=== PATIENT | female | born 1985 | race Caucasian/White ===

== ENCOUNTER 2020-01-04 13:56 | Emergency (ER) | payer SELFPAY ==
--- NOTE | 2020-01-04 14:10 | XRR_ITS ---
PROCEDURE INFORMATION: Exam: XR Right Foot Complete Exam date and time: 01/04/2020 3:22 PM Age: 34 years old Clinical indication: Injury or trauma; Injury history: Not specified; Initial encounter; Blunt trauma; Foot; Right TECHNIQUE: Imaging protocol: XR Right foot. Views: 3 or more views. COMPARISON: No relevant prior studies available. FINDINGS: Bones/joints: No acute fracture. No dislocation. Soft tissues: Soft tissue swelling of the forefoot. No radiopaque foreign body identified. XR/XR foot RT min 3V* [id number] IMPRESSION: No acute fracture or dislocation.
[2020-01-04 14:40] VITALS: BP 145/98; PULSE 107; RESP 16; TEMP 36.6; O2SAT 98; BMI 33.9
--- NOTE | 2020-01-04 14:46 | PC.NURSE ---
Patient seated in the waiting room. Will continue to monitor.
[2020-01-04 16:29] VITALS: BP 114/55; PULSE 106; PULSE 108; RESP 18; TEMP 36.9; O2SAT 105
--- NOTE | 2020-01-04 16:47 | XRR_ITS ---
PROCEDURE INFORMATION: Exam: XR Right Ankle Exam date and time: 01/04/2020 4:48 PM Age: 34 years old Clinical indication: Pain; Ankle; Right; Additional info: Fall TECHNIQUE: Imaging protocol: XR Right ankle. Views: 3 or more views. COMPARISON: CR XR foot RT min 3V* [id number] 01/04/2020 3:15 PM FINDINGS: Bones/joints: Alignment is normal. The ankle mortise and talar dome are preserved. No displaced fracture is seen. No cortical avulsions are seen. The calcaneus is intact. Suspect a posterior ankle effusion. Soft tissues: Mild periarticular soft tissue swelling is noted. XR/XR ankle RT min 3V* [id number] IMPRESSION: 1. No acute fracture or dislocation. 2. Suspect posterior ankle effusion.
--- NOTE | 2020-01-04 16:48 | W.ED.EXTPRO ---
HPI - Extremity Problem General: Chief complaint: Extremity Injury, Lower Stated complaint: RIGHT FOOT PAIN Time Seen by Provider: 01/04/20 16:02 Source: patient Mode of arrival: ambulatory Limitations: no limitations History of Present Illness: HPI Narrative: 34-year-old female patient presents to the emergency department complaining of right foot and ankle pain. Patient states she was sitting on it fell asleep and when she stood up she lost her balance and twisted her ankle. Patient states that it is difficult to ambulate on. Patient presents with edema and ecchymosis to the right foot and ankle. Pulses movement and sensations intact. Patient denies any other injury or trauma. MD Complaint: extremity pain and extremity swelling Onset (ago): hour(s) (4) Pain Consistency: constant Location: right and lower extremity Quality: aching and sharp Radiation: none Relieving factors: immobilization Exacerbating factors: weight bearing and walking Associated symptoms: Reports no associated symptoms; Deny chest pain, fever(s) or rash Review of Systems Const: Denies: fever, chills, body aches, fatigue or malaise Eyes: Denies: change in vision Card: Denies: chest pain, palpitations, irregular heart rhythm, lightheadedness or syncope Resp: Denies: shortness of breath, productive cough, wheezing or stridor GI: Denies: abdominal pain, nausea or vomiting : Denies: flank pain, difficulty urinating or painful urination Musc: Reports: extremity pain (Right ankle and foot pain), joint swelling and limited range of motion Skin/Breast: Denies: rash Neuro: Denies: headache or numbness in extremities Psych: Denies: anxiety, suicidal ideation or homicidal ideation [facility] ED PFSH: Statuses (acute, chronic, etc) shown below reflect problem list status as previously entered and may not be historically accurate Surgical History History of hernia surgery (Acute) History of removal of cyst (Acute) History of tubal ligation (Acute) Hx of cholecystectomy (Acute) Social History Smoking and tobacco status: current every day smoker cigarettes Packs smoked per day: 1 Years cigarettes smoked: 18 Quit status (tobacco): has tried quititng Number of times tried to quit tobacco: 3 Second hand smoke exposure: No Smoking risk assessment/counseling performed?: Yes Tobacco counseling given: counseling >3 minutes Physical Exam Const: COMMON NORMALS: no apparent distress and no limitations GENERAL APPEARANCE: cooperative ORIENTATION/CONSCIOUSNESS: Yes awake, Yes oriented to person, Yes oriented to place and Yes oriented to time HENMT: COMMON NORMALS: normocephalic and head/scalp atraumatic HEAD & SCALP: normocephalic and atraumatic Eye: COMMON NORMALS: PERRL PUPIL: Yes PERRL Neck/C-Spine: COMMON NORMALS: full ROM, no lymphadenopathy, supple and no JVD Resp: COMMON NORMALS: normal respiratory effort and clear to auscultation bilaterally EFFORT & INSPECTION: Yes able to speak in complete sentences AUSCULTATION: clear to auscultation bilaterally Cardio: COMMON NORMALS: no JVD, regular rate and regular rhythm RATE: regular rate RHYTHM: regular rhythm : COMMON NORMALS: Yes no CVA tenderness BLADDER/KIDNEY EXAM: Yes no CVA tenderness Back/Pelvis: COMMON NORMALS: no CVA tenderness and thoracic and lumbar spine normal to inspection THORACIC SPINE/UPPER BACK: Yes normal to inspection and Yes thoracic ROM normal LUMBAR SPINE/LOWER BACK: Yes normal to inspection and Yes lumbar ROM normal Extremity: RIGHT LOWER EXTREMITY: Yes ankle joint (Ecchymosis and swelling noted lateral malleolus) Right ankle: Yes ROM (Limited due to pain) LEFT LOWER EXTREMITY: Yes foot & digits (Swelling and ecchymosis noted NVI) Neuro: SENSORIUM/ORIENTATION: Yes oriented to person, Yes oriented to place and Yes oriented to time Psych: THOUGHT CONTENT: Yes normal thought content, No suicidality and No homicidality Course ED course: I will order ankle x-ray and foot x-ray have patient elevate extremity and place ice to area of pain. Pt i NVI dstal to area of pain. Pt xrays do not reveal any acute fractures or dislocation. Pts physical exam findings are c/w ankle sprain. I will place in ar cast and give crutches and place as non weight bearing with instructions to follow up with Dr. Sanchez. Vital Signs: Vital signs: Vital Signs Temperature 98.5 F 01/04/20 16:29 Pulse Rate 108 H 01/04/20 16:29 Respiratory Rate 18 01/04/20 16:29 Blood Pressure 114/55 01/04/20 16:29 Pulse Oximetry 105 H 01/04/20 16:29 Discharge Plan Discharge Clinical Impression: Ankle sprain and strain Condition: Stable Prescriptions: New hydrocodone-acetaminophen 5-300 mg tablet 1 tab PO Q6H Qty: 10 RF: 0 No Action mirtazapine [Remeron] 15 mg tablet 30 mg PO .HS Qty: 60 RF: 2 Referrals: Rina Sanchez MD [Physician] - Oniel Freeman Jr, MD [Primary Care Provider] - Patient Instructions: Ankle Sprain (ED) Activity Restrictions/Additional Instructions: Non weight bearing Please follow up with Dr. Sanchez Take meds as directed Please do not drive or operate heavy machinery while taking Hydrocodone Coding Level of Care Code ED Block [employer]er for [employer] Exam Problem Focused
--- NOTE | 2020-01-04 18:58 | W.ED.EXTPRO ---
HPI - Extremity Problem General: Chief complaint: Extremity Injury, Lower Stated complaint: RIGHT FOOT PAIN Time Seen by Provider: 01/04/20 16:02 Source: patient Mode of arrival: ambulatory Limitations: no limitations History of Present Illness: Pain Consistency: constant Location: right and lower extremity Quality: aching and sharp Relieving factors: immobilization Exacerbating factors: weight bearing and walking Associated symptoms: Deny chest pain, fever(s) or rash Review of Systems Const: Denies: fever, chills, body aches, fatigue or malaise Card: Denies: chest pain or palpitations Resp: Denies: shortness of breath, wheezing or stridor GI: Denies: abdominal pain, nausea or vomiting : Denies: flank pain, difficulty urinating or painful urination Musc: Reports: joint pain (right ankle and foot pain) Skin/Breast: Denies: rash Neuro: Denies: headache, numbness in extremities or weakness in extremities Psych: Denies: anxiety, depression, suicidal ideation or homicidal ideation PFSH ED PFSH: Statuses (acute, chronic, etc) shown below reflect problem list status as previously entered and may not be historically accurate Surgical History History of hernia surgery (Acute) History of removal of cyst (Acute) History of tubal ligation (Acute) Hx of cholecystectomy (Acute) Social History Smoking and tobacco status: current every day smoker cigarettes Packs smoked per day: 1 Years cigarettes smoked: 18 Quit status (tobacco): has tried quititng Number of times tried to quit tobacco: 3 Second hand smoke exposure: No Smoking risk assessment/counseling performed?: Yes Tobacco counseling given: counseling >3 minutes Physical Exam Const: COMMON NORMALS: no apparent distress Resp: COMMON NORMALS: normal respiratory effort, no retractions, no use of accessory muscles and clear to auscultation bilaterally AUSCULTATION: clear to auscultation bilaterally Cardio: COMMON NORMALS: regular rate and regular rhythm RATE: regular rate RHYTHM: regular rhythm : COMMON NORMALS: Yes no CVA tenderness BLADDER/KIDNEY EXAM: Yes no CVA tenderness Back/Pelvis: COMMON NORMALS: no CVA tenderness, thoracic and lumbar spine normal to inspection, no thoracic nor lumbar tenderness and thoraco-lumbar ROM normal Extremity: COMMON NORMALS: normal capillary refill and no calf tenderness RIGHT LOWER EXTREMITY: Yes ankle joint (right ankle pain swelling and bruising noted) and Yes foot & digits (right ankle pain swelling and bruising noted pt is NVI) Right foot and digits: Yes neurovascular exam Course ED course: Pt is wella ppearing non toxic and in no acute distress. I do not see any acute fractures or dislocations on xray however given the xtent of pain and swelling. I will place patient in air cast, crutches and have her non weight bearing and follow up with Dr. Sanchez ortho. Pt sent home with short course of pain meds. Risks advised. Return precautions discussed and home care reviewed. Pt is NVI distal to injury. Vital Signs: Vital signs: Vital Signs Temperature 99.2 F 01/04/20 19:25 Pulse Rate 88 01/04/20 19:25 Respiratory Rate 16 01/04/20 19:25 Blood Pressure 114/55 01/04/20 16:29 Pulse Oximetry 105 H 01/04/20 16:29 Discharge Plan Discharge Clinical Impression: Ankle sprain and strain Condition: Stable Prescriptions: New hydrocodone-acetaminophen 5-300 mg tablet 1 tab PO Q6H Qty: 10 RF: 0 No Action mirtazapine [Remeron] 15 mg tablet 30 mg PO .HS Qty: 60 RF: 2 Referrals: Rina Sanchez MD [Physician] - Oniel Freeman Jr, MD [Primary Care Provider] - Patient Instructions: Ankle Sprain (ED) Activity Restrictions/Additional Instructions: Non weight bearing Please follow up with Dr. 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
[2020-01-04 19:25] VITALS: PULSE 88; RESP 16; TEMP 37.3
--- NOTE | 2020-01-05 15:25 | DCPLANNER ---
industrial organization manager had message to schedule a follow up appointment for patient with ortho. industrial organization manager called the ortho clinic, spoke with Haily, gave clinic patients information. industrial organization manager was told that patients information would be printed and reviewed. Clinic will call correctional casework specialist and patient with appointment information.
--- NOTE | 2020-01-07 15:31 | DCPLANNER ---
A follow up appointment is scheduled for 01.23.20 at 1:[address] Funes. Clinic will contact patient with appointment information.
--- NOTE | 2020-01-22 15:38 | DCPLANNER ---
Patient did attend appointment scheduled for 01.12.20 with ortho.
== END 2020-01-04 19:26 | disposition home or self-care (01) ==
PROVIDERS: Emergency Provider Registered Nurse; Family Provider Family Medicine; PCP Family Medicine
DX: S93.401A Sprain of unspecified ligament of right ankle, initial encounter (principal); S96.911A Strain of unspecified muscle and tendon at ankle and foot level, right foot, initial encounter; X50.1XXA Overexertion from prolonged static or awkward postures, initial encounter; F17.210 Nicotine dependence, cigarettes, uncomplicated
CPT/HCPCS: 73610; 73630; 99281; 99283

== ENCOUNTER 2020-01-12 15:14 | Outpatient (CLI) | payer SELFPAY | END 2020-01-12 15:15 | disposition home or self-care (01) | LOC: SPT 15:15 | PROVIDERS: Family Provider Family Medicine; PCP Family Medicine; Visit Provider Podiatrist Foot & Ankle Surgery | DX: Z46.89 Encounter for fitting and adjustment of other specified devices (principal) | CPT/HCPCS: L1902 ==